=== PATIENT | female | born 2000 | race Two or more races ===

== ENCOUNTER 2024-12-24 12:21 | Emergency (ER) | payer OTHER, MEDICAID, SELFPAY ==
[2024-12-24 12:21] VITALS: BMI 39.1
[2024-12-24 12:25] VITALS: BP 153/85; PULSE 98; RESP 17; TEMP 36.8; O2SAT 97
[2024-12-24] MEDS: ONDANSETRON ODT 4 MG TABRAP PO (12:53)
[2024-12-24 13:01] LABS: Collection Type, Urine Voided
[2024-12-24 13:18] LABS: HCG Qualitative,Urine Positive
[2024-12-24 13:25] LABS: Bacteria,Urine Rare; Bilirubin,Urine Negative (Negative); Blood,Urine 2+ (Negative); Clarity,Urine Turbid (Clear/Hazy); Color,Urine Yellow (Lt Yel-Yel); Culture Indicated,Urine Not Indicated; Glucose, Urine Negative (Negative); Ketones,Urine 4+ (Negative); Leukocyte Esterase,Urine Negative (Negative); Nitrite,Urine Negative (Negative); PH,Urine 5.5 (5.0-7.0); Protein,Urine 1+ (Neg - Trace); RBC,Urine 6 /hpf (0-3); Specific Gravity,Urine 1.039 (1.001-1.035); Squamous Epithelial Cell,Urine 8 /hpf (0-5); WBC,Urine 3 /hpf (0-5)
--- NOTE | 2024-12-24 14:23 | EDNOTE_ITS ---
Nausea/Vomit./Diarrhea-RME/HPI General Chief complaint: Nausea/Vomiting/Diarrhea Stated complaint: VOMITING Time Seen by Provider: 12/24/24 12:31 Arrival date/time: 12/24/24 12:21 This is a 24-year-old female that comes in with complaints of nausea and vomiting not able to keep food down. Patient just found out she is . Patient has not seek care for yet as she just found out 2 days ago. Patient not having abdominal pain fever or chills. Patient denies any urinary symptoms. Related Data Previous Rx's ?Medication ?Instructions ?Recorded dicyclomine 20 mg tablet 20 mg PO TID PRN abdominal 0 09/23/22 discomfort #14 tabs ondansetron 4 mg disintegrating 4 mg PO Q8H PRN nausea and 09/23/22 tablet vomiting #14 tabs ondansetron 4 mg disintegrating 4 mg PO Q6H PRN nausea and 12/24/24 tablet vomiting #14 tabs Allergies Allergy/AdvReac Type Severity Reaction Status Date / Time No Known Allergies Allergy Verified 12/25/24 08:54 Review of Systems Review of Systems Systems Reviewed: All systems reviewed, normal except as documented Past Medical History Past Medical History CARDIAC: Negative Cardiac Disorders RESPIRATORY: Negative Asthma GENITOURINARY: Negative Renal Disease ENDOCRINE: Negative Diabetes Mellitus Type 2 HEMATOLOGIC: Negative Sickle Cell Disease Social History SMOKING STATUS: Never smoker SUBSTANCE USE: marijuana ED Exam Narrative Physical exam: VITAL SIGNS: Reviewed. GENERAL APPEARANCE: Alert and interactive, follows commands, no acute distress HEAD AND FACE: Non-traumatic. ENT: PERRL, conjuctiva pink and clear, eyelid no trauma, Mucous membrane moist. NECK: Supple, nontender, no nuchal rigidity. CHEST: No tenderness, no crepitus, no paradoxical movement, no retractions. LUNGS: Clear, well ventilated, symmetric, no rales, no wheezing, no rhonchi, no stridor, good breath sounds bilaterally. HEART: Regular rate, regular rhythm, no murmur, no gallops. ABDOMEN: Soft, nondistended, no guarding, nontender NEUROLOGICAL: Gross motor function intact sensory function intact, Appropriate for age. MUSCULOSKELETAL: low back nontender, full range of motion. EXTREMITIES: No redness no swelling no skin breakdown on bilateral foot and leg. Distal neurovascular status intact bilateral foot SKIN: Color pink, dry, no rash, no lacerations, no abrasions, no contusions. Course Quality Measures none Orders Category Date Time Status Bedside Influenza A&B Antigen Test NOW Care 12/24/24 12:44 Completed HCG Qualitative,Urine Stat Lab 12/24/24 12:54 Completed Urinalysis, C/S if Indicated Stat Lab 12/24/24 12:54 Completed Ondansetron Odt [Zofran Odt] Med 12/24/24 12:44 Discontinued 4 mg PO X1 ONE Vital Signs Vital signs: Vital Signs Temperature 98.2 F 12/24/24 12:25 Pulse Rate 98 12/24/24 12:25 Respiratory Rate 17 12/24/24 12:25 Blood Pressure 153/85 H 12/24/24 12:25 Pulse Oximetry (%) 97 12/24/24 12:25 Oxygen Delivery Method Room Air 12/24/24 12:25 Nausea/Vomiting/Diarrhea MDM Narrative MDM Narrative:: Patient's last menstrual period was last month earlier in the month. She does not recall last day. Patient not having vaginal bleeding abdominal pain. Patient no longer nauseous. Will send patient home with Zoan. Patient told to come back to the emergency room if symptoms change or worsen otherwise make an appoint with primary provider. Patient data External records reviewed:: [facility] previous records Clinical information provided by:: patient Social determinants that could affect healthcare access:: none Patient has the following chronic illnesses:: none How is presenting disease/condition affected by chronic disease/condition?: no c hronic disease Evaluation data The following diagnostics were reviewed and interpreted by me:: lab results Lab and/or radiology exams considered but not ordered:: none Interpretation Summary: see note Medications / Prescriptions Medications / Prescriptions considered but not ordered:: none Medication administrations:: Medication Administration History Discontinued Medications Ondansetron HCl (Ondansetron Odt 4 Mg Tabrap) 4 mg PO X1 ONE; Protocol Stop: 12/24/24 12:45 Last Admin: 12/24/24 12:53 Dose: 4 mg Documented By: AGUILAR see mar Consultations Consultation(s) initiated? (list below): No Diagnosis Nausea Differential Diagnosis: food poisoning, gastroenteritis, dehydration and other (nausea secondary to ) Most likely diagnosis given after review of the tests above:: viral illness and likely nausea secondary to Admission Indicated Admission indicated?: not indicated Admission Request Was there a request for admission?: No Disposition Plan Disposition Plan: Discharge Discharge Attestation Discharge Attestation: The patient and all family members were given an opportunity to ask questions and understood the discharge instructions. Discharge instructions specifically effects, indications for sooner follow up or return to the emergency department, and the expected course of current diagnosis. Patient condition: Stable Discharge Plan Plan Patient Disposition: HOME (Self Care) Patient condition on transfer: Stable Prescriptions/Referrals Prescriptions/Med Rec: New ondansetron 4 mg tablet,disintegrating 4 mg PO Q6H PRN (Reason: nausea and vomiting) Qty: 14 0RF No Action ondansetron 4 mg tablet,disintegrating 4 mg PO Q8H PRN (Reason: nausea and vomiting) Qty: 14 0RF dicyclomine 20 mg tablet 20 mg PO TID PRN (Reason: abdominal discomfort) Qty: 14 0RF Referrals: Ward Maddox MD [Primary Care Provider] - In 1 week Problem List Clinical Impression: Nausea & vomiting, Patient/Caregiver Discharge Instructions Education Materials: First Trimester, ED Vomiting (Adult) Additional Instructions: Follow up with primary provider in 1-2 days. Come back to ED if symptoms change or worsen Print Language: Indonesian Stand Alone Forms: Karen Award Info., Patient Portal Info Letter YASMIN/PAUL Supervising Physician YASMIN/PAUL Supervising Physician: fabien
[2024-12-24 14:30] VITALS: BP 132/70; PULSE 67; RESP 18; TEMP 36.6; O2SAT 99
== END 2024-12-24 14:31 | disposition home or self-care (01) ==
PROVIDERS: Nurse Practitioner Family; Emergency Provider Family Medicine; PCP Family Medicine
DX: O21.9 Vomiting of pregnancy, unspecified (principal); Z3A.00 Weeks of gestation of pregnancy not specified
CPT/HCPCS: 81001; 81025; 87400; 99283; Q0162

== ENCOUNTER 2024-12-25 08:51 | Emergency (ER) | payer OTHER, MEDICAID, SELFPAY ==
[2024-12-25 08:52] VITALS: BMI 39.1
[2024-12-25 09:14] VITALS: BP 127/82; PULSE 68; RESP 18; TEMP 36.9; O2SAT 99
--- NOTE | 2024-12-25 09:22 | XR_ITS ---
Examination: Complete OB ultrasound, less than 14 weeks, transabdominal Date and time of exam: December 25, 2024 10:19 AM INDICATIONS: Vaginal bleeding and pelvic cramping beginning today Technique: Obstetrical ultrasound images less than 14 weeks performed via transabdominal imaging Findings: A normal shaped single intrauterine gestation is present in the uterus. CRL 0.6 cm corresponds to 6 weeks 3 days gestational age Cardiac motion 112 BPM Subchorionic hemorrhage 22 x 8 x 17 mm Ultrasonographic survey of visible and placental structures unremarkable. Amniotic fluid volume appears appropriate for this estimated gestational age. Right ovary 2.9 cm arterial flow Left ovary 4.6 cm arterial flow IMPRESSION: Viable intrauterine gestation 6 weeks 3 days, recommend short-term follow-up pelvic sonography given the subchorionic hemorrhage Also recommend pelvic sonography to document stability of the prominent left ovary.
[2024-12-25 09:40] LABS: Basophils % (Auto) 0 % (0-2.5); Eosinophils # (Auto) 0.1 Thou/mm3 (0.0-0.5); Eosinophils % (Auto) 1 % (0-10); Hematocrit 38.2 % (36.0-46.0); Immature Granulocytes % (Auto) 0 % (0-0); Immature Granulocytes Auto 0.02 Thou/mm3 (0.00-0.00); Lymphocytes # (Auto) 1.4 Thou/mm3 (1.0-4.8); Lymphocytes % (Auto) 18 % (10-50); Mean Corpuscular Hemoglobin 27.8 pg (25.0-35.0); Mean Corpuscular Volume 82 fL (80-100); Monocytes # (Auto) 0.6 Thou/mm3 (0.0-0.8); Monocytes % (Auto) 8 % (0-12); Neutrophils # (Auto) 5.7 Thou/mm3 (1.8-7.7); Neutrophils % (Auto) 73 % (37-80); Nucleated Red Blood Cell % 0 /100 WBC (0); Platelet Count 344 Thou/mm3 (140-440); RDW Standard Deviation 40.5 fL (36.4-46.3); Red Blood Count 4.67 Miln/mm3 (4.00-5.20); White Blood Count 7.8 Thou/mm3 (3.6-11.0)
[2024-12-25 10:03] LABS: Alanine Aminotransferase 31 U/L (10-49); Albumin, Serum 4.9 gm/dL (3.5-5.0); Albumin/Globulin Ratio 2.1 (1.2-2.2); Alkaline Phosphatase 68 U/L (46-116); Anion Gap 11 (7-16); Aspartate Amino Transferase 15 U/L (0-34); BUN/Creatinine Ratio 10 Ratio (12-20); Bilirubin,Total 0.7 mg/dL (0.3-1.2); Blood Urea Nitrogen 6 mg/dL (9-23); Calcium 9.8 mg/dL (8.3-10.6); Calcium (Corrected) 9.8 mg/dL (8.5-10.1); Carbon Dioxide 26.4 mMol/L (20.0-31.0); Chloride 96 mMol/L (98-107); Creatinine (Component) 0.6 mg/dL (0.6-1.3); Estimated Creatinine Clearance 178.4 mL/min (>60); Globulin 2.3 gm/dL (2.3-3.5); Glucose 116 mg/dL (74-106); Osmolality,Calculated 264 (275-295); Potassium 3.1 mMol/L (3.4-5.1); Sodium 133 mMol/L (136-145); Total Protein 7.2 gm/dL (5.7-8.2); eGFR > 60 See Note
--- NOTE | 2024-12-25 11:50 | EDNOTE_ITS ---
ED OB Contraction Preg RMI/HPI General Chief complaint: OB/Uterine Contractions Stated complaint: SPOTTING/CRAMPING. Time Seen by Provider: 12/25/24 08:55 Arrival date/time: 12/25/24 08:51 24-year-old female approximately 6 weeks presents to the emergency department today for complaints of abdominal cramping and spotting. Patient reports was evaluated today for nausea and vomiting which has resolved but now has cramping Limitations: no limitations Related Data Previous Rx's ?Medication ?Instructions ?Recorded dicyclomine 20 mg tablet 20 mg PO TID PRN abdominal 0 09/23/22 discomfort #14 tabs ondansetron 4 mg disintegrating 4 mg PO Q8H PRN nausea and 09/23/22 tablet vomiting #14 tabs ondansetron 4 mg disintegrating 4 mg PO Q6H PRN nausea and 12/24/24 tablet vomiting #14 tabs Allergies Allergy/AdvReac Type Severity Reaction Status Date / Time No Known Allergies Allergy Verified 12/25/24 08:54 Review of Systems Review of Systems Systems Reviewed: All systems reviewed, normal except as documented Constitutional Constitutional: Reports system reviewed and no additional complaints, except as documented, Denies fever(s) and Denies headache(s) Eyes Eyes: Reports system reviewed and no additional complaints, except as documented and Denies blurry vision ENT Ears, Nose, Mouth, and Throat: Reports system reviewed and no additional complaints, except as documented, Denies headache(s), Denies nasal congestion and Denies nasal discharge Cardiovascular Cardiovascular: Reports system reviewed and no additional complaints, except as documented, Denies chest pain and Denies dyspnea Respiratory Respiratory: Reports system reviewed and no additional complaints, except as documented, Denies chest congestion, Denies cough and Denies dyspnea Gastrointestinal Gastrointestinal: Reports system reviewed and no additional complaints, except as documented and Denies abdominal pain Genitourinary Genitourinary: Reports system reviewed and no additional complaints, except as documented and Reports other (Cramping pelvic) Integumentary/Breasts Skin/Breast: Reports system reviewed and no additional complaints, except as documented and Denies rash Neurologic Neurologic: Reports system reviewed and no additional complaints, except as documented, Reports as per HPI and Denies headache(s) Past Medical History Past Medical History CARDIAC: Negative Cardiac Disorders RESPIRATORY: Negative Asthma GENITOURINARY: Negative Renal Disease ENDOCRINE: Negative Diabetes Mellitus Type 2 HEMATOLOGIC: Negative Sickle Cell Disease Social History SMOKING STATUS: Never smoker SUBSTANCE USE: marijuana ED Exam General Limitations: Present no limitations General appearance: Present alert and in no apparent distress Head Head exam: Present atraumatic Eye Eye exam: Present normal appearance, PERRL and EOMI ENT ENT exam: Present normal exam, normal oropharynx and mucous membranes moist Neck Neck exam: Present normal inspection, full ROM and trachea midline Chest Chest inspection: Present normal inspection and symmetric chest wall rise Respiratory Respiratory exam: Present normal lung sounds bilaterally Cardiovascular Cardiovascular exam: Present regular rate, normal rhythm and normal heart sounds Abdominal Exam Abdominal exam: Present soft and normal bowel sounds; Absent distention, tenderness, guarding, rebound or rigidity Extremities Exam Extremities exam: Present normal inspection and full ROM Back Exam Back exam: Present normal inspection and full ROM Neurological Exam Neurological exam: Present alert, oriented X3 and CN II-XII intact Psychiatric Psychiatric exam: Present normal affect and normal mood Skin Skin exam: Present warm, dry, intact and normal color Course Quality Measures none Orders Category Date Time Status US OB <= 14 weeks fetus Stat Exams 12/25/24 09:22 Completed ABO/RH Type Stat Lab 12/25/24 09:27 Completed Beta HCG,Quantitative Stat Lab 12/25/24 09:27 Completed CBC Stat Lab 12/25/24 09:27 Completed Comprehensive Metabolic Panel Stat Lab 12/25/24 09:27 Completed Potassium Chloride [K-Dur] Med 12/25/24 11:51 Discontinued 40 meq PO X1 ONE Vital Signs Vital signs: Vital Signs Temperature 98.5 F 12/25/24 09:14 Pulse Rate 68 12/25/24 09:14 Respiratory Rate 18 12/25/24 09:14 Blood Pressure 127/82 12/25/24 09:14 Pulse Oximetry (%) 99 12/25/24 09:14 Oxygen Delivery Method Room Air 12/25/24 09:14 O2 saturation 99% room air within normal limits OB/Uterine Contractions MDM Narrative MDM Narrative:: 24-year-old female approximately 6 weeks presents to the emergency department today for complaints of abdominal cramping and spotting. Patient reports was evaluated today for nausea and vomiting which has resolved but now has cramping On exam patient well-appearing patient does not appear toxic no acute distress patient has soft nontender abdomen Lab work and imaging obtained At this time patient appears to have viable Lab work shows a hypokalemia of 3.1 patient was given a dose of potassium here Patient discharged home in no distress to follow-up with primary care doctor in the next 24 to 48 hours and for any worsening symptoms to return to the ER immediately Patient data External records reviewed:: [facility] previous records Clinical information provided by:: patient Social determinants that could affect healthcare access:: none Patient has the following chronic illnesses:: None How is presenting disease/condition affected by chronic disease/condition?: no chronic disease Evaluation data The following diagnostics were reviewed and interpreted by me:: lab results and radiology exam(s) Lab and/or radiology exams considered but not ordered:: Labs radiology obtained Interpretation Summary: Reviewed by me Medications / Prescriptions Medications or Prescriptions considered but not ordered:: Given Medication administrations:: Medication Administration History Discontinued Medications Potassium Chloride (Potassium Chloride 20 Meq Tabcr) 40 meq PO X1 ONE Stop: 12/25/24 11:52 Last Admin: 12/25/24 12:36 Dose: 40 meq Documented By: CN Given Consultations Consultation(s) initiated? (list below): No Diagnosis OB Contractions Differential Diagnosis: other (Missed , threatened , nausea vomiting) Most likely diagnosis given after review of the tests above:: Threatened Admission Indicated Admission indicated?: not indicated Explain why admission is indicated or not indicated:: No criteria Admission Request Was there a request for admission?: No Disposition Plan Disposition Plan: Discharge Discharge Attestation Discharge Attestation: The patient and all family members were given an opportunity to ask questions and understood the discharge instructions. Discharge instructions specifically effects, indications for sooner follow up or return to the emergency department, and the expected course of current diagnosis. Patient condition: Stable Discharge Plan Plan Patient Disposition: HOME (Self Care) Discharge Disposition comment: Stable Prescriptions/Referrals Prescriptions/Med Rec: No Action ondansetron 4 mg tablet,disintegrating 4 mg PO Q8H PRN (Reason: nausea and vomiting) Qty: 14 0RF dicyclomine 20 mg tablet 20 mg PO TID PRN (Reason: abdominal discomfort) Qty: 14 0RF ondansetron 4 mg tablet,disintegrating 4 mg PO Q6H PRN (Reason: nausea and vomiting) Qty: 14 0RF Referrals: Ward Maddox MD [Primary Care Provider] - In 1 week Problem List Clinical Impression: Abdominal cramping affecting , Nausea & vomiting, Hypokalemia Patient/Caregiver Discharge Instructions Education Materials: Measuring Your Pain Additional Instructions: Please 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 conn
[2024-12-25] MEDS: POTASSIUM CHLORIDE 20 mEq TABCR 40 MEQ PO (12:36)
[2024-12-25 13:36] VITALS: PULSE 78; RESP 18; TEMP 36.6; O2SAT 100
== END 2024-12-25 13:41 | disposition home or self-care (01) ==
PROVIDERS: Nurse Practitioner Primary Care; Emergency Provider Family Medicine; PCP Family Medicine
DX: O99.891 Other specified diseases and conditions complicating pregnancy (principal); E87.6 Hypokalemia; O21.9 Vomiting of pregnancy, unspecified; R10.2 Pelvic and perineal pain; Z3A.01 Less than 8 weeks gestation of pregnancy
CPT/HCPCS: 36415; 76801; 80053; 81001; 84702; 85025; 86900; 86901; 99284; A9270

== ENCOUNTER 2025-01-30 14:13 | Outpatient (AMB) | payer OTHER, MEDICAID, SELFPAY ==
[2025-01-30 14:32] VITALS: BP 121/79; PULSE 84; RESP 17; TEMP 37.3; O2SAT 98; BMI 37.4
--- NOTE | 2025-01-30 14:32 | AMB.OBINITIA ---
Vital Signs 01/30/25 14:32 Height 1.65 m Height Method Stated Weight 102.115 kg Weight Measurement Method Standing Scale BMI 37.4 BP 121/79 Blood Pressure Source Automatic Cuff Blood Pressure Location Right Upper Arm Position Sitting Respiration 17 Pulse 84 Pulse Source Monitor Temp 99.1 F Temp Source Temporal Artery Scan Pulse Oximetry (%) 98 Oxygen Delivery Method Room Air Allergies/Home Meds Allergies & Medications Allergies No Known Allergies Allergy (Verified 01/30/25 14:33) Medication Reconciliation dicyclomine 20 mg tablet 20 mg PO TID PRN abdominal discomfort #14 tabs 09/23/22 [Rx Confirmed 01/30/25] ondansetron 4 mg disintegrating tablet 4 mg PO Q8H PRN nausea and vomiting #14 tabs 09/23/22 [Rx Confirmed 01/30/25] ondansetron 4 mg disintegrating tablet 4 mg PO Q6H PRN nausea and vomiting #14 tabs 12/24/24 [Rx Confirmed 01/30/25] ondansetron 4 mg disintegrating tablet 4 mg PO Q6H PRN nausea and vomiting #30 tabs 01/30/25 [Rx] Intake Visit Data Collection New Patient or Established: Established Patient (seen at [facility] within 3 years) Reason for Visit:: OBI Seen by Clinical Staff ONLY (RN/MA): No 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 1. Little interest or pleasure in doing things: not at all 2. Feeling down, depressed, or hopeless: not at all Total score: 0 PHQ-9 3. Trouble falling or staying asleep, or sleeping too much: Not at all 4. Feeling tired or having little energy: Not at all 5. Poor appetite or overeating: Not at all 6. Feeling bad about yourself - or that you are a failure or have let yourself or your family down: Not at all 7. Trouble concentrating on things, such as reading the newspaper or watching television: Not at all 8. Moving or speaking so slowly that other people could have noticed? - Or the opposite - being so fidgety or restless that you have been moving around a lot more than usual: not at all 9. Thoughts that you would be better off or of hurting yourself in some way: Not at all Total score: 0 If you checked off any problems, how difficult have these problems made it for you to do your work, take care of things at home, or get along with other people?: not difficult at all Source: Developed by Drs. Enoch Bridges, Janeen Fuchs, Klaus Figueroa and colleagues, with an educational quinton from [employer]. Depression screen completed yes Social History Living Situation History Marital Status: Life Partner Lives With: Family Housing: House Tobacco History Smoking Status: Never smoker Second Hand Smoke Exposure: No Alcohol History Alcohol Intake: Never Domestic Abuse History Do You Feel Safe at Home: Yes History of Present Illness HPI Narrative 24-year-old 1 para 0 for OBI. Patient has a LMP of November 09, 2024. This gives EDC August 16, 2024. Patient reports that she started menses at 14 years old. They are every month about 4 to 5 days. This was a planned . She has a history of prediabetes. Denies any surgeries. And she has a history of smoking weed but she stopped this and she found out she was . Denies any vaginal bleeding. Denies leaking. Denies contractions. 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 Last period November 2024. EDC August 16, 2024. Patient has sure dates. She had an ultrasound at [facility] ER on December 25, 2024. Patient was 6 weeks and 5 and this confirmed dates August 16, 2024. There hCGs were 40,000. Denies bleeding at this time increased nausea and vomiting. Phenergan is not helping. And denies bleeding and denies leaking and no cramping. Schedule maternal- medicine ultrasound. OB panel NIPT and carrier screen today. A1c today. Discussed diet and weight gain. Discussed SAB precautions. Comfort measures for nausea and vomiting continue with the Phenergan as needed and I will add Zofran 4 mg every 8 hours. Increase fluids. Return in 4 weeks OB check Menstrual History Menstrual reliability: definite Flow: normal Menstrual regularity: regular Monthly: Yes Age at menarche: 14 On control pills at conception: No OB History : 1 Infection History & Risk Evaluation History of STDs: none HIV risk evaluation: low risk Hepatitis B risk evaluation: low risk Patient or partner has history of Genital Herpes: No Varicella/chicken pox status: unknown Genetic Screening & History Genetic Screening/Teratology Counseling - Includes patient, baby's father, or anyone in either family with: 1. Patient's age 35 years or older as of estimated date of delivery: No 2. Thalassemia (Turkish, Montenegrin, Mediterranean, or Background); MCV less than 80: No 3. Neural Tube Defect (Meningomyelocele, Spina Bifida, or Anencephaly): No 4. Congenital Heart Defect: No 5. Down Syndrome: No 6. Ephraim-Sachs (Ashkenazi Lutheran, Cajun, Yoruba [place]): No 7. Bozena Disease (Ashkenazi Lutheran): No 8. Familial Dysautonomia (Ashkenazi Lutheran): No 9. Sickle Cell Disease or Trait (): No 10. Hemophilia or other blood disorders: No 11. Muscular Dystrophy: No 12. Cystic Fibrosis: No 13. [place]'s Chorea: No 14. Mental Retardation/Autism: No 15. Other inherited genetic or chromosomal disorder: No 16. Maternal Metabolic Disorder (EG,TYPE 1 Diabetes, PKU): No 17. Patient or baby's father had a child with defects not listed above: No 18. Recurrent loss or a stillbirth: No 19. Medications (including supplements, vitamins, herbs or otc drugs)/illicit/recreational drugs/alcohol since last menstrual period: No 20. Any other: No Infection History 1. Live with someone with TB or exposed to TB: No 2. Rash or viral illness since last menstrual period: No 3. Hepatitis B,C: No Other (see comments) Source: [employer] Review of Systems Review of Systems Systems Reviewed: All systems reviewed, normal except as documented Exam General Limitations: no limitations General Appearance: alert, in no apparent distress, comfortable, cooperative, healthy appearing, well developed and well groomed Head Head exam: atraumatic, normocephalic and normal inspection Resp Respiratory exam: Present normal lung sounds bilaterally Card Cardiovascular exam: Present regular rate, normal rhythm and normal heart sounds Abdominal Abdominal exam: Present soft and normal bowel sounds Psych Psychiatric exam: Present normal affect and normal mood Office Procedures OB Clinic LOC & Office Proc's Nursing/Assessment Patient Status: Established Patient OB Clinic Nursing Assessment: Medication Reconciliation, Update PMH in EMR and Vital Signs OB Clinic Coordination of Care: Complex Care and Chronic Disease 1-5, Consent,records obtained, informed consent, Education Simp Pt/Fam, Lab and Imaging orders and Staff clarify orders Special Needs: Heart tones Established Patient Charge Established Patient Point Assignment: 130 Established Patient Point Charge: EP Level 4 (120-155) Assessment & Plan Diagnosis / Problem List (1) Encounter for supervision of high risk in first trimester, antepartum: Status: Acute (2) Maternal obesity syndrome in first trimester: Status: Acute Plan Discussed diet and weight gain. Continue prenatals. Schedule maternal- medicine appointment for NT scan and anatomy scan. OB panel, NIPT, carrier screen, A1c today. Discussed SAB precautions return in 4 weeks OB check Additional Plan Follow Up: 4 Weeks (obc)
== END 2025-01-30 15:28 | disposition home or self-care (01) ==
LOC: HODSOBC 14:13
PROVIDERS: Supervising Provider Advanced Practice Midwife; Visit Provider Advanced Practice Midwife
DX: O09.891 Supervision of other high risk pregnancies, first trimester (principal); O99.211 Obesity complicating pregnancy, first trimester; Z3A.11 11 weeks gestation of pregnancy
CPT/HCPCS: 99214; G0463

== ENCOUNTER 2025-02-27 08:13 | Outpatient (AMB) | payer OTHER, MEDICAID, SELFPAY ==
[2025-02-27 08:23] VITALS: BP 115/76; PULSE 69; RESP 16; TEMP 37.2; O2SAT 98; BMI 38.1
--- NOTE | 2025-02-27 08:23 | AMB.OBVISIT ---
Vital Signs 02/27/25 08:23 Height 1.65 m Height Method Stated Weight 103.873 kg Weight Measurement Method Standing Scale BMI 38.1 BP 115/76 Blood Pressure Source Automatic Cuff Blood Pressure Location Left Upper Arm Position Sitting Respiration 16 Pulse 69 Pulse Source Monitor Temp 98.9 F Temp Source Oral Pulse Oximetry (%) 98 Oxygen Delivery Method Room Air Allergies/Home Meds Allergies & Medications Allergies No Known Allergies Allergy (Verified 02/27/25 08:24) Medication Reconciliation dicyclomine 20 mg tablet 20 mg PO TID PRN abdominal discomfort #14 tabs 09/23/22 [Rx Confirmed 02/27/25] ondansetron 4 mg disintegrating tablet 4 mg PO Q8H PRN nausea and vomiting #14 tabs 09/23/22 [Rx Confirmed 02/27/25] ondansetron 4 mg disintegrating tablet 4 mg PO Q6H PRN nausea and vomiting #14 tabs 12/24/24 [Rx Confirmed 02/27/25] ondansetron 4 mg disintegrating tablet 4 mg PO Q6H PRN nausea and vomiting #30 tabs 01/30/25 [Rx Confirmed 02/27/25] Intake Visit Data Collection New Patient or Established: Established Patient (seen at [facility] within 3 years) Reason for Visit:: CARE Seen by Clinical Staff ONLY (RN/MA): No Transaction Advisory Services Manager Required: No Do You Feel Safe at Home: Yes Authorities Contacted: N/A PCP or OBGYN visit in last 3 months: Yes Hx Now: Yes Are you currently on any form of Control: No Pain Present Currently: No Pain Scale Used: Diallo-Rivera/Numerical Pain scale:: 0 Smoking Status Smoking Status: Never smoker Questionnaires Covid-19 Vaccine Questionnaire Has patient been vacinated for Covid-19 Have you been vacinated for Covid-19: Yes PHQ-9 PHQ-2 Over the last 2 weeks, how often have you been bothered by any of the following problems? 1. Little interest or pleasure in doing things: not at all 2. Feeling down, depressed, or hopeless: not at all Total score: 0 PHQ-9 3. Trouble falling or staying asleep, or sleeping too much: Not at all 4. Feeling tired or having little energy: Not at all 5. Poor appetite or overeating: Not at all 6. Feeling bad about yourself - or that you are a failure or have let yourself or your family down: Not at all 7. Trouble concentrating on things, such as reading the newspaper or watching television: Not at all 8. Moving or speaking so slowly that other people could have noticed? - Or the opposite - being so fidgety or restless that you have been moving around a lot more than usual: not at all 9. Thoughts that you would be better off or of hurting yourself in some way: Not at all Total score: 0 Source: Developed by Drs. Enoch Bridges, Janeen Fuchs, Klaus Figueroa and colleagues, with an educational quinton from [employer]. 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 Last period November 2024. EDC August 16, 2024. Patient has sure dates. She had an ultrasound at [facility] ER on December 25, 2024. Patient was 6 weeks and 5 and this confirmed dates August 16, 2024. There hCGs were 40,000. Denies bleeding at this time increased nausea and vomiting. Phenergan is not helping. And denies bleeding and denies leaking and no cramping. Schedule maternal- medicine ultrasound. OB panel NIPT and carrier screen today. A1c today. Discussed diet and weight gain. Discussed SAB precautions. Comfort measures for nausea and vomiting continue with the Phenergan as needed and I will add Zofran 4 mg every 8 hours. Increase fluids. Return in 4 weeks OB check 02/27/25 <del>?</del> 15w 5d 103.873 kg 115/76 absent unknown 15 145 absent No OB complaints. Denies leaking, denies bleeding, denies contractions. aFP today. Discussed weight gain. Discussed SAB precautions. Increase fluids. Keep MFM anatomy scan for March 30 return in 4 weeks OB check GONZALO Calculator Estimated Delivery Date Method Current WG Current Estimate 08/16/25 LMP (Certain) 15w 5d Other Estimates 08/17/25 Ultrasound #1 15w 4d Notes Visit Date: 02/27/25 Last Updated by: Lyn White CNM OB PANEL: o+,ABS-, RPR;;NR, RUB IMM, HBSAG-, HIV-, HC-, gc/ct-, a1: 5.7, nipt-/GIRL, CARRIER SCREEN- Visit Date: 01/30/25 Last Updated by: Lyn White CNM 24 yo . lmp 11/09/24. EDC: 08/16/24. 1st sono: 12/25/24. IUP:6w3. EDC: 08/16/25. Office Procedures OB Clinic LOC & Office Proc's Nursing/Assessment Patient Status: Established Patient OB Clinic Nursing Assessment: Medication Reconciliation, Update PMH in EMR and Vital Signs OB Clinic Coordination of Care: Complex Care and Chronic Disease 1-5, Consent,records obtained, informed consent, Education Simp Pt/Fam, 1 Ins Authorization, Lab and Imaging orders, Results/Orders obtained and Staff clarify orders Special Needs: Heart tones Established Patient Charge Established Patient Point Assignment: 150 Established Patient Point Charge: EP Level 4 (120-155) Assessment & Plan Diagnosis / Problem List (1) Encounter for supervision of high risk in second trimester, antepartum: Status: Acute (2) Obesity affecting in second trimester: Status: Acute Qualifiers: Obesity type affecting : severe obesity due to excess calories Qualified Code(s): O99.212 - Obesity complicating , second trimester; E66.01 - Morbid (severe) obesity due to excess calories Plan aFP today. Keep appointment for March 30 with MFM for anatomy scan. Discussed SAB precautions. Increase fluids. Discussed weight and diet. increase activity. return in 4 weeks Additional Plan Follow Up: 4 Weeks (obc)
== END 2025-02-27 09:28 | disposition home or self-care (01) ==
LOC: HODSOBC 08:13
PROVIDERS: Supervising Provider Advanced Practice Midwife; Visit Provider Advanced Practice Midwife
DX: O09.892 Supervision of other high risk pregnancies, second trimester (principal); O99.212 Obesity complicating pregnancy, second trimester; Z3A.15 15 weeks gestation of pregnancy
CPT/HCPCS: 99214; G0463

== ENCOUNTER 2025-03-27 08:17 | Outpatient (AMB) | payer OTHER, MEDICAID, SELFPAY ==
[2025-03-27 08:41] VITALS: BP 135/79; PULSE 96; RESP 18; TEMP 36.9; O2SAT 98; BMI 39.2
--- NOTE | 2025-03-27 08:41 | OBCLNT_ITS ---
Vital Signs 03/27/25 08:41 Height 1.65 m Height Method Measured Weight 106.821 kg Weight Measurement Method Standing Scale BMI 39.2 BP 135/79 H Blood Pressure Source Automatic Cuff Blood Pressure Location Right Upper Arm Position Sitting Respiration 18 Pulse 96 Pulse Source Monitor Temp 98.4 F Temp Source Temporal Artery Scan Pulse Oximetry (%) 98 Oxygen Delivery Method Room Air Allergies/Home Meds Allergies & Medications Allergies No Known Allergies Allergy (Verified 02/27/25 08:24) Intake Visit Data Collection New Patient or Established: Established Patient (seen at [facility] within 3 years) Reason for Visit:: OBC FOLLOW UP Clearance Rep Required: No Do You Feel Safe at Home: Yes Authorities Contacted: N/A PCP or OBGYN visit in last 3 months: Yes Date of Last PCP or OBGYN visit: 02/27/25 Hx Now: Yes Are you currently on any form of Control: No Pain Present Currently: No Smoking Status Smoking Status: Never smoker Questionnaires PHQ-9 PHQ-2 Over the last 2 weeks, how often have you been bothered by any of the following problems? 1. Little interest or pleasure in doing things: not at all PHQ-9 8. Moving or speaking so slowly that other people could have noticed? - Or the opposite - being so fidgety or restless that you have been moving around a lot more than usual: not at all Source: Developed by Drs. Enoch Bridges, Janeen Fuchs, Klaus Figueroa and colleagues, with an educational quinton from [employer]. 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 Last period November 2024. EDC August 16, 2024. Patient has sure dates. She had an ultrasound at [facility] ER on December 25, 2024. Patient was 6 weeks and 5 and this confirmed dates August 16, 2024. There hCGs were 40,000. Denies bleeding at this time increased nausea and vomiting. Phenergan is not helping. And denies bleeding and denies leaking and no cramping. Schedule materna l- medicine ultrasound. OB panel NIPT and carrier screen today. A1c today. Discussed diet and weight gain. Discussed SAB precautions. Comfort measures for nausea and vomiting continue with the Phenergan as needed and I will add Zofran 4 mg every 8 hours. Increase fluids. Return in 4 weeks OB check 02/27/25 -?-?-?-?-?-?-?-?-?-?-?-?- 15w 5d 103.873 kg 115/76 absent unknown 15 145 absent No OB complaints. Denies leaking, denies bleeding, denies contractions. aFP today. Discussed weight gain. Discussed SAB precautions. Increase fluids. Keep MFM anatomy scan for March 30 return in 4 weeks OB check 03/27/25 -?-?-?-?-?-?-?-?-?-?-?-?- 19w 5d 106.821 kg 135/79 absent unknown 19 145 absent No OB complaints. Genetics appointment was completed. Patient is follow-up for MFM. Denies leaking, bleeding, contractions. Light movement noted Follow-up sono with MFM scheduled for April 02, 2025. Discussed labor precautions. Increase fluids. Return in 4 weeks OB check GONZALO Calculator Estimated Delivery Date Method Current WG Current Estimate 08/16/25 LMP (Certain) 19w 5d Other Estimates 08/17/25 Ultrasound #1 19w 4d Notes Visit Date: 03/27/25 Last Updated by: Lyn White CNM 03/26: AFP+/genetic and mfm scheduled. Update AFP info and NIPT info, pat ient and partner were given slaiva kits for carrier screen, amno declined Visit Date: 02/27/25 Last Updated by: Lyn White CNM OB PANEL: o+,ABS-, RPR;;NR, RUB IMM, HBSAG-, HIV-, HC-, gc/ct-, a1: 5.7, nipt-/GIRL, CARRIER SCREEN- Visit Date: 01/30/25 Last Updated by: Lyn White CNM 24 yo . lmp 11/09/24. EDC: 08/16/24. 1st sono: 12/25/24. IUP:6w3. EDC: 08/16/25. Office Procedures OB Clinic LOC & Office Proc's Nursing/Assessment Patient Status: Established Patient OB Clinic Nursing Assessment: Medication Reconciliation, Update PMH in EMR and Vital Signs OB Clinic Coordination of Care: Complex Care and Chronic Disease 1-5, Education Complex Pt/Fam, Consent,records obtained, informed consent, Lab and Imaging orders and Results/Orders obtained Special Needs: Heart tones Established Patient Charge Established Patient Point Assignment: 130 Established Patient Point Charge: EP Level 3 (80-115) Assessment & Plan Diagnosis / Problem List (1) Obesity affecting in second trimester: Status: Acute Qualifiers: Obesity type affecting : severe obesity due to excess calories Qualified Code(s): O99.212 - Obesity complicating , second trimester; E66.01 - Morbid (severe) obesity due to excess calories (2) Encounter for supervision of high risk in second trimester, antepartum: Status: Acute Plan Follow-up with [facility] April 02, 2025 for follow-up scan. Patient and partner are completing saliva kits for carrier screens from the genetic counselor. Patient declined amniocentesis. Discussed precautions. Increase fluids. Continue prenatals. Return in 4 weeks OB check Additional Plan Follow Up: 4 Weeks (OBC)
== END 2025-03-27 09:46 | disposition home or self-care (01) ==
LOC: HODSOBC 08:17
PROVIDERS: Supervising Provider Advanced Practice Midwife; Visit Provider Advanced Practice Midwife
DX: O09.892 Supervision of other high risk pregnancies, second trimester (principal); O99.212 Obesity complicating pregnancy, second trimester; Z3A.19 19 weeks gestation of pregnancy
CPT/HCPCS: 99213; G0463

== ENCOUNTER 2025-04-25 10:12 | Outpatient (AMB) | payer OTHER, MEDICAID, SELFPAY ==
[2025-04-25 10:44] VITALS: BP 112/74; PULSE 89; RESP 16; TEMP 36.6; O2SAT 98; BMI 40.8
--- NOTE | 2025-04-25 10:44 | OBCLNT_ITS ---
Vital Signs 04/25/25 10:44 Height 1.65 m Height Method Stated Weight 111.244 kg Weight Measurement Method Standing Scale BMI 40.8 BP 112/74 Blood Pressure Source Automatic Cuff Blood Pressure Location Left Upper Arm Position Sitting Respiration 16 Pulse 89 Pulse Source Monitor Temp 97.8 F Temp Source Oral Pulse Oximetry (%) 98 Oxygen Delivery Method Room Air Allergies/Home Meds Allergies & Medications Allergies No Known Allergies Allergy (Verified 04/25/25 10:45) Medication Reconciliation dicyclomine 20 mg tablet 20 mg PO TID PRN abdominal discomfort #14 tabs 09/23/22 [Rx Confirmed 04/25/25] ondansetron 4 mg disintegrating tablet 4 mg PO Q8H PRN nausea and vomiting #14 tabs 09/23/22 [Rx Confirmed 04/25/25] ondansetron 4 mg disintegrating tablet 4 mg PO Q6H PRN nausea and vomiting #14 tabs 12/24/24 [Rx Confirmed 04/25/25] ondansetron 4 mg disintegrating tablet 4 mg PO Q6H PRN nausea and vomiting #30 tabs 01/30/25 [Rx Confirmed 04/25/25] aspirin 81 mg tablet,delayed release (Adult Aspirin Regimen) 81 mg PO QDAY #30 tabs 04/25/25 [Rx] vitamin-ferrous fumarate 28 mg iron-folic acid 800 mcg tablet ( Vitamins with Minerals) 1 tab PO QDAY #60 tabs 04/25/25 [Rx] Intake Visit Data Collection New Patient or Established: Established Patient (seen at [facility] within 3 years) Reason for Visit:: CARE Seen by Clinical Staff ONLY (RN/MA): No Drug Room Clerk Required: No Do You Feel Safe at Home: Yes Authorities Contacted: N/A PCP or OBGYN visit in last 3 months: Yes Hx Now: Yes Are you currently on any form of Control: No Pain Present Currently: No Pain Scale Used: Diallo-Rivera/Numerical Pain scale:: 0 Smoking Status Smoking Status: Never smoker Immunizations Flu Vaccine in the Last 12 Months: No Flu Vaccine Exclusion Criteria: No Exclusion Criteria Questionnaires Covid-19 Vaccine Questionnaire Has patient been vacinated for Covid-19 Have you been vacinated for Covid-19: No PHQ-9 PHQ-2 Over the last 2 weeks, how often have you been bothered by any of the following problems? 1. Little interest or pleasure in doing things: not at all 2. Feeling down, depressed, or hopeless: not at all Total score: 0 PHQ-9 3. Trouble falling or staying asleep, or sleeping too much: Not at all 4. Feeling tired or having little energy: Not at all 5. Poor appetite or overeating: Not at all 6. Feeling bad about yourself - or that you are a failure or have let yourself or your family down: Not at all 7. Trouble concentrating on things, such as reading the newspaper or watching television: Not at all 8. Moving or speaking so slowly that other people could have noticed? - Or the opposite - being so fidgety or restless that you have been moving around a lot m ore than usual: not at all 9. Thoughts that you would be better off or of hurting yourself in some way: Not at all Total score: 0 Source: Developed by Drs. Enoch Bridges, Janeen Fuchs, Klaus Figueroa and colleagues, with an educational quinton from [employer]. 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 Last period November 2024. EDC August 16, 2024. Patient has sure dates. She had an ultrasound at [facility] ER on December 25, 2024. Patient was 6 weeks and 5 and this confirmed dates August 16, 2024. There hCGs were 40,000. Denies bleeding at this time increased nausea and vomiting. Phenergan is not helping. And denies bleeding and denies leaking and no cramping. Schedule materna l- medicine ultrasound. OB panel NIPT and carrier screen today. A1c today. Discussed diet and weight gain. Discussed SAB precautions. Comfort measures for nausea and vomiting continue with the Phenergan as needed and I will add Zofran 4 mg every 8 hours. Increase fluids. Return in 4 weeks OB check 02/27/25 -?-?-?-?-?-?-?-?-?-?-?-?- 15w 5d 103.873 kg 115/76 absent unknown 15 145 absent No OB complaints. Denies leaking, denies bleeding, denies contractions. aFP today. Discussed weig ht gain. Discussed SAB precautions. Increase fluids. Keep MFM anatomy scan for March 30 return in 4 weeks OB check 03/27/25 -?-?-?-?-?-?-?-?-?-?-?-?- 19w 5d 106.821 kg 135/79 absent unknown 19 145 absent No OB complaints. Genetics appointment was completed. Patient is follow-up for MFM. Denies leaking, bleeding, contractions. Light movement noted Follow-up sono with MFM scheduled for April 02, 2025. Discussed labor precautions. Increase fluids. Return in 4 weeks OB check 04/25/25 -?-?-?-?-?--?-?-?-?-?-?-?- 23w 6d 111.244 kg 112/74 absent unknown 23 140 active Doing well. No OB complaints. Reports good movement. Denies leaking, bleeding or cramps. Nausea and vomiting improved Fol low-up MFM appointment May 17. Discussed labor precautions. Ordered third trimester labs to be done at OB. Return in 4 weeks OB check GONZALO Calculator Estimated Delivery Date Method Current WG Current Estimate 08/16/25 LMP (Certain) 23w 6d Other Estimates 08/17/25 Ultrasound #1 23w 5d 08/16/25 Ultrasound #2 23w 6d 08/17/25 Manual 23w 5d final gonzalo: 08/17, efw: 86% Notes Visit Date: 04/25/25 Last Updated by: Lyn White CNM 04/25: marginal cord insert, efw: 86% Visit Date: 03/27/25 Last Updated by: Lyn White CNM 03/26: AFP+/genetic and mfm scheduled. Update AFP info and NIPT info, patient and partner were given slaiva kits for carrier screen, amno declined Visit Date: 02/27/25 Last Updated by: Lyn White CNM OB PANEL: o+,ABS-, RPR;;NR, RUB IMM, HBSAG-, HIV-, HC-, gc/ct-, a1: 5.7, nipt-/GIRL, CARRIER SCREEN- Visit Date: 01/30/25 Last Updated by: Lyn White CNM 24 yo . lmp 11/09/24. EDC: 08/16/24. 1st sono: 12/25/24. IUP:6w3. EDC: 08/16/25. Office Procedures OBC Clinic LOC & Office Proc's Nursing/Assessment Patient Status: Established Patient OB Clinic Nursing Assessment: Medication Reconciliation, Update PMH in EMR and Vital Signs OB Clinic Coordination of Care: Complex Care and Chronic Disease 1-5, Consent,records obtained, informed consent, Education Simp Pt/Fam, Lab and Imaging orders, Results/Orders obtained and Staff clarify orders Special Needs: Heart tones Established Patient Charge Established Patient Point Assignment: 135 Established Patient Point Charge: EP Level 4 (120-155) Assessment & Plan Diagnosis / Problem List (1) Obesity affecting in second trimester: Status: Acute Qualifiers: Obesity type affecting : severe obesity due to excess calories Qualified Code(s): O99.212 - Obesity complicating , second trimester; E66.01 - Morbid (severe) obesity due to excess calories Plan OB panel at outpatient department. Discussed labor precautions. Increase fluids. Discussed diet and weight gain. Return in 4 weeks OB check start low-dose baby aspirin. refill PNV Additional Plan Follow Up: 4 Weeks (obc)
== END 2025-04-25 11:30 | disposition home or self-care (01) ==
LOC: HODSOBC 10:12
PROVIDERS: Supervising Provider Advanced Practice Midwife; Visit Provider Advanced Practice Midwife
DX: O09.892 Supervision of other high risk pregnancies, second trimester (principal); O99.212 Obesity complicating pregnancy, second trimester; Z3A.23 23 weeks gestation of pregnancy
CPT/HCPCS: 99214; G0463

== ENCOUNTER → 2025-05-01 | Outpatient (CLI) | payer OTHER, MEDICAID, SELFPAY ==
[2025-05-01 11:16] LABS: Basophils # (Auto) 0.0 Thou/mm3 (0.0-0.2); Basophils % (Auto) 0 % (0-2.5); Eosinophils # (Auto) 0.2 Thou/mm3 (0.0-0.5); Eosinophils % (Auto) 2 % (0-10); Hematocrit 34.6 % (36.0-46.0); Hemoglobin 11.2 g/dL (12.0-16.0); Immature Granulocytes Auto 0.06 Thou/mm3 (0.00-0.00); Lymphocytes # (Auto) 1.5 Thou/mm3 (1.0-4.8); Lymphocytes % (Auto) 15 % (10-50); Mean Corpuscular HGB Conc 32.4 g/dl (31.0-37.0); Mean Corpuscular Hemoglobin 26.9 pg (25.0-35.0); Mean Corpuscular Volume 83 fL (80-100); Monocytes # (Auto) 0.4 Thou/mm3 (0.0-0.8); Monocytes % (Auto) 4 % (0-12); Neutrophils # (Auto) 7.8 Thou/mm3 (1.8-7.7); Neutrophils % (Auto) 78 % (37-80); Nucleated Red Blood Cell # 0.00 Thou/mm3 (0.00-0.00); Nucleated Red Blood Cell % 0 /100 WBC (0); Platelet Count 301 Thou/mm3 (140-440); RDW Standard Deviation 42.1 fL (36.4-46.3); Red Blood Count 4.16 Miln/mm3 (4.00-5.20); White Blood Count 10.0 Thou/mm3 (3.6-11.0)
[2025-05-01 11:25] LABS: Glucose,1 Hour PP 50gm Dose 233 mg/dL (80-140)
[2025-05-01 11:30] LABS: Glucose Estimated Average 120 mg/dL (80-131); Hemoglobin A1C 5.8 % Hgb (4.8-6.0)
[2025-05-01 11:58] LABS: Syphilis Nonreactive (Nonreactive)
== END | disposition home or self-care (01) ==
LOC: COPL 09:17
PROVIDERS: Referring Provider Advanced Practice Midwife; Visit Provider Advanced Practice Midwife
DX: O99.212 Obesity complicating pregnancy, second trimester (principal); E66.01 Morbid (severe) obesity due to excess calories; O09.92 Supervision of high risk pregnancy, unspecified, second trimester
CPT/HCPCS: 36415; 82950; 83036; 85025; 86780

== ENCOUNTER 2025-05-23 08:11 | Outpatient (AMB) | payer OTHER, MEDICAID, SELFPAY ==
[2025-05-23 08:29] VITALS: BP 114/78; PULSE 109; RESP 18; TEMP 36.2; O2SAT 98; BMI 42.0
--- NOTE | 2025-05-23 08:29 | AMB.OBPNC ---
Vital Signs 05/23/25 08:29 Height 1.65 m Height Method Stated Weight 114.475 kg Weight Measurement Method Standing Scale BMI 42.0 BP 114/78 Blood Pressure Source Automatic Cuff Blood Pressure Location Left Upper Arm Position Sitting Respiration 18 Pulse 109 H Pulse Source Monitor Temp 97.2 F Temp Source Oral Pulse Oximetry (%) 98 Oxygen Delivery Method Room Air Allergies/Home Meds Allergies & Medications Allergies No Known Allergies Allergy (Verified 05/23/25 08:29) Medication Reconciliation dicyclomine 20 mg tablet 20 mg PO TID PRN abdominal discomfort #14 tabs 09/23/22 [Rx Confirmed 05/23/25] ondansetron 4 mg disintegrating tablet 4 mg PO Q8H PRN nausea and vomiting #14 tabs 09/23/22 [Rx Confirmed 05/23/25] ondansetron 4 mg disintegrating tablet 4 mg PO Q6H PRN nausea and vomiting #14 tabs 12/24/24 [Rx Confirmed 05/23/25] ondansetron 4 mg disintegrating tablet 4 mg PO Q6H PRN nausea and vomiting #30 tabs 01/30/25 [Rx Confirmed 05/23/25] aspirin 81 mg tablet,delayed release (Adult Aspirin Regimen) 81 mg PO QDAY #30 tabs 04/25/25 [Rx Confirmed 05/23/25] vitamin-ferrous fumarate 28 mg iron-folic acid 800 mcg tablet ( Vitamins with Minerals) 1 tab PO QDAY #60 tabs 04/25/25 [Rx Confirmed 05/23/25] blood sugar diagnostic (Blood Glucose Test strips) #50 ea 05/23/25 [Rx] blood-glucose meter #1 ea 05/23/25 [Rx] lancets #100 ea 05/23/25 [Rx] Immunizations Immunizations Flu Vaccine in the Last 12 Months: No Flu Vaccine Exclusion Criteria: No Exclusion Criteria Care OB Visit Log OB Flowsheet Initial Weight: Not Recorded Date <del>?</del> EGA Weight BP Alb Glu CTX Pres Fundal ht FHR Mov Dilation Station Effacement Hx Notes Visit Note 01/30/25 <del>?</del> 11w 5d 102.115 kg 121/79 absent unknown 11 156 absent 24-year-old 1 para 0 for OBI. Last period November 2024. EDC August 16, 2024. Patient has sure dates. She had an ultrasound at [facility] ER on December 25, 2024. Patient was 6 weeks and 5 and this confirmed dates August 16, 2024. There hCGs were 40,000. Denies bleeding at this time increased nausea and vomiting. Phenergan is not helping. And denies bleeding and denies leaking and no cramping. Schedule maternal- medicine ultrasound. OB panel NIPT and carrier screen today. A1c today. Discussed diet and weight gain. Discussed SAB precautions. Comfort measures for nausea and vomiting continue with the Phenergan as needed and I will add Zofran 4 mg every 8 hours. Increase fluids. Return in 4 weeks OB check 02/27/25 <del>?</del> 15w 5d 103.873 kg 115/76 absent unknown 15 145 absent No OB complaints. Denies leaking, denies bleeding, denies contractions. aFP today. Discussed weight gain. Discussed SAB precautions. Increase fluids. Keep MFM anatomy scan for March 30 return in 4 weeks OB check 03/27/25 <del>?</del> 19w 5d 106.821 kg 135/79 absent unknown 19 145 absent No OB complaints. Genetics appointment was completed. Patient is follow-up for MFM. Denies leaking, bleeding, contractions. Light movement noted Follow-up sono with MFM scheduled for April 02, 2025. Discussed labor precautions. Increase fluids. Return in 4 weeks OB check 04/25/25 <del>?</del> 23w 6d 111.244 kg 112/74 absent unknown 23 140 active Doing well. No OB complaints. Reports good movement. Denies leaking, bleeding or cramps. Nausea and vomiting improved Follow-up MFM appointment May 17. Discussed labor precautions. Ordered third trimester labs to be done at OB. Return in 4 weeks OB check 05/23/25 <del>?</del> 27w 6d 114.475 kg 114/78 absent unknown 28 140 active Doing well. Reports good movement. Denies labor precautions. Fetus is active. Patient has forms with her that need to be filled out approving 12 weeks off after delivery Follow-up [facility] July 03. Ordered lancets, glucometer, test trips. I discussed and went over GDM diet and testing. Walk for 40 minutes a day and 10 minutes after each meal. Discussed labor precautions. And advised patient to increase her low-dose baby aspirin to 2 tablets a day and return in 3 weeks OB. disability x 12 week GONZALO Calculator Estimated Delivery Date Method Current WG Current Estimate 08/16/25 LMP (Certain) 27w 6d Other Estimates 08/17/25 Ultrasound #1 27w 5d 08/16/25 Ultrasound #2 27w 6d 08/17/25 Manual 27w 5d final gonzalo: 08/17/25, efw: 86% Notes Visit Date: 05/23/25 Last Updated by: Lyn White CNM 1 hr gtt: 223. RPR-, A1c: 5.8, sono 05/16/25: IUP 26w6, EFW>99% Visit Date: 04/25/25 Last Updated by: Lyn White CNM 04/25: marginal cord insert, efw: 86% Visit Date: 03/27/25 Last Updated by: Lyn White CNM 03/26: AFP+/genetic and mfm scheduled. Update AFP info and NIPT info, patient and partner were given slaiva kits for carrier screen, amno declined Visit Date: 02/27/25 Last Updated by: Lyn White CNM OB PANEL: o+,ABS-, RPR;;NR, RUB IMM, HBSAG-, HIV-, HC-, gc/ct-, a1: 5.7, nipt-/GIRL, CARRIER SCREEN- Visit Date: 01/30/25 Last Updated by: Lyn White CNM 24 yo . lmp 11/09/24. EDC: 08/16/24. 1st sono: 12/25/24. IUP:6w3. EDC: 08/16/25. Office Procedures OBC Clinic LOC & Office Proc's Nursing/Assessment Patient Status: Established Patient OB Clinic Nursing Assessment: Medication Reconciliation, Update PMH in EMR and Vital Signs OB Clinic Coordination of Care: Consent,records obtained, informed consent, Education Simp Pt/Fam, Lab and Imaging orders, Results/Orders obtained and Staff clarify orders Special Needs: Heart tones Established Patient Charge Established Patient Point Assignment: 110 Established Patient Point Charge: EP Level 3 (80-115) Assessment & Plan Diagnosis / Problem List (1) Obesity affecting in second trimester: Status: Acute Qualifiers: Obesity type affecting : severe obesity due to excess calories Qualified Code(s): O99.212 - Obesity complicating , second trimester; E66.01 - Morbid (severe) obesity due to excess calories (2) Diet controlled gestational diabetes mellitus (GDM) in second trimester: Status: Acute Plan Follow-up M for July 03. Her last ultrasound showed baby growing in the 99th percentile. Discussed 1 hour GTT was 233. I ordered glucometer, lancets and test strips. I reviewed testing 4 times a day. I reviewed reviewed parameters. Will start antepartum testing at 32 weeks. Induced at 39. And I signed patient's form for her employer to have 12 weeks care patient will follow-up with [facility] for diabetic teaching. Additional Plan Follow Up: 4 Weeks (obc)
== END 2025-05-23 09:26 | disposition home or self-care (01) ==
LOC: HODSOBC 08:11
PROVIDERS: Supervising Provider Advanced Practice Midwife; Visit Provider Advanced Practice Midwife
DX: O09.892 Supervision of other high risk pregnancies, second trimester (principal); O24.410 Gestational diabetes mellitus in pregnancy, diet controlled; O99.212 Obesity complicating pregnancy, second trimester; Z3A.27 27 weeks gestation of pregnancy
CPT/HCPCS: 99213; G0463

== ENCOUNTER 2025-06-13 08:25 | Outpatient (AMB) | payer OTHER, MEDICAID, SELFPAY ==
[2025-06-13 08:39] VITALS: BP 116/75; PULSE 91; RESP 18; TEMP 36.6; O2SAT 98; BMI 41.8
--- NOTE | 2025-06-13 08:39 | OBCLNT_ITS ---
Vital Signs 06/13/25 08:39 Height 1.65 m Height Method Stated Weight 113.852 kg Weight Measurement Method Standing Scale BMI 41.8 BP 116/75 Blood Pressure Source Automatic Cuff Blood Pressure Location Left Upper Arm Position Sitting Respiration 18 Pulse 91 Pulse Source Monitor Temp 97.9 F Temp Source Oral Pulse Oximetry (%) 98 Oxygen Delivery Method Room Air Allergies/Home Meds Allergies & Medications Allergies No Known Allergies Allergy (Verified 06/13/25 08:40) Medication Reconciliation dicyclomine 20 mg tablet 20 mg PO TID PRN abdominal discomfort #14 tabs 09/23/22 [Rx Confirmed 06/13/25] ondansetron 4 mg disintegrating tablet 4 mg PO Q8H PRN nausea and vomiting #14 tabs 09/23/22 [Rx Confirmed 06/13/25] ondansetron 4 mg disintegrating tablet 4 mg PO Q6H PRN nausea and vomiting #14 tabs 12/24/24 [Rx Confirmed 06/13/25] ondansetron 4 mg disintegrating tablet 4 mg PO Q6H PRN nausea and vomiting #30 tabs 01/30/25 [Rx Confirmed 06/13/25] aspirin 81 mg tablet,delayed release (Adult Aspirin Regimen) 81 mg PO QDAY #30 tabs 04/25/25 [Rx Confirmed 06/13/25] vitamin-ferrous fumarate 28 mg iron-folic acid 800 mcg tablet ( Vitamins with Minerals) 1 tab PO QDAY #60 tabs 04/25/25 [Rx Confirmed 06/13/25] blood sugar diagnostic (Blood Glucose Test strips) #50 ea 05/23/25 [Rx Confirmed 06/13/25] blood-glucose meter #1 ea 05/23/25 [Rx Confirmed 06/13/25] lancets #100 ea 05/23/25 [Rx Confirmed 06/13/25] metformin 500 mg tablet 500 mg PO QHS #60 tabs 06/13/25 [Rx] Immunizations Immunizations Flu Vaccine in the Last 12 Months: No Flu Vaccine Exclusion Criteria: Refused by Patient Care OB Visit Log OB Flowsheet Initial Weight: Not Recorded Date -?-?-?-?-?-?-?-?-?-?-?-?- EGA Weight BP Alb Glu CTX Pres Fundal ht FHR Mov Dilation Station Effacement Hx Notes Visit Note 01/30/25 -?-?-?-?-?-?-?-?-?-?-?-?- 11w 5d 102.115 kg 121/79 absent unknown 11 156 absent 24-year-old 1 para 0 for OBI. Last period November 2024. EDC August 16, 2024. Patient has sure dates. She had an ultrasound at [facility] ER on December 25, 2024. Patient was 6 weeks and 5 and this confirmed dates August 16, 2024. There hCGs were 40,000. Denies bleeding at this time increased nausea and vomiting. Phenergan is not helping. And denies bleeding and denies leaking and no cramping. Schedule materna l- medicine ultrasound. OB panel NIPT and carrier screen today. A1c today. Discussed diet and weight gain. Discussed SAB precautions. Comfort measures for nausea and vomiting continue with the Phenergan as needed and I will add Zofran 4 mg every 8 hours. Increase fluids. Return in 4 weeks OB check 02/27/25 -?-?-?-?-?-?-?-?-?--?-?-?- 15w 5d 103.873 kg 115/76 absent unknown 15 145 absent No OB complaints. Denies leaking, denies bleeding, denies contractions. aFP today. Discussed weight gain. Discussed SAB precautions. Increase fluids. Keep MFM anatomy scan for March 30 return in 4 weeks OB check 03/27/25 -?-?-?-?-?-?-?-?-?-?-?-?- 19w 5d 106.821 kg 135/79 absent unknown 19 145 absent No OB complaints. Genetics appointment was completed. Patient is follow-up for MFM. Denies leaking, bleeding, contractions. Light movement noted Follow-up sono with MFM scheduled for April 02, 2025. Discussed labor precautions. Increase fluids. Return in 4 weeks OB check 04/25/25 -?-?-?-?-?-?-?-?-?-?-?-?- 23w 6d 111.244 kg 112/74 absent unknown 23 140 active Doing well. No OB complaints. Reports good movement. Denies leaking, bleeding or cramps. Nausea and vomiting improved Fol low-up MFM appointment May 17. Discussed labor precautions. Ordered third trimester labs to be done at OB. Return in 4 weeks OB check 05/23/25 -?-?-?-?-?-?-?-?-?-?-?-?- 27w 6d 114.475 kg 114/78 absent unknown 28 140 active Doing well. Reports good movement. Denies labor precautions. Fetus is active. Patient has forms with her that need to be filled out approving 12 weeks off after delivery Follow-up [facility] . Ordered lancets, glucometer, test trips. I discussed and went over GDM diet and testing. Walk for 40 minutes a day and 10 minutes after each meal. Discussed labor precautions. And advised patient to increase her low-dose baby aspirin to 2 tablets a day and return in 3 weeks OB. disability x 12 week 06/13/25 -?-?-?-?-?-?-?-?-?-?-?-?- 30w 6d 113.852 kg 116/75 absent unknown 30 154 active Denies OB complaints. Denies contractions, leaking, bleeding. Reports good compliance with diet. Patient is compliant with monitoring her blood sugars. She notes that when she eats too much her sugars are higher. And she also notes that her blood sugars are highest fasting. Follow-up [facility] July 03. No other OB complaints reports good movement Keep appoin tment with maternal- medicine July 03. In regards to patient's disability she plans to start her disability August 09, 2025. And she plans to be off 12 weeks so her return date will be November 02, 2025. Mom discussed labor precautions. Kick count twice a day. Consulted about her blood sugars and she will start metformin 500 p.o. at at bedtime. She will continue to monitor sugars and then we will reevaluate. Walk 40 minutes a day. We reviewed GDM diet. And I ordered to start weekly NST BPP. Return in 2 weeks OB check. Tdap today GONZALO Calculator Estimated Delivery Date Method Current WG Current Estimate 08/16/25 LMP (Certain) 30w 6d Other Estimates 08/17/25 Ultrasound #1 30w 5d 08/16/25 Ultrasound #2 30w 6d 08/17/25 Manual 30w 5d final gonzalo: 08/17, efw: 86% Notes Visit Date: 05/23/25 Last Updated by: Lyn White CNM 1 hr gtt: 223. RPR-, A1c: 5.8, sono 05/16/25: IUP 26w6, EFW>99% Visit Date: 04/25/25 Last Updated by: Lyn White CNM 04/25: marginal cord insert, efw: 86% Visit Date: 03/27/25 Last Updated by: Lyn White CNM 03/26: AFP+/genetic and mfm scheduled. Update AFP info and NIPT info, patient and partner were given slaiva kits for carrier screen, amno declined Visit Date: 02/27/25 Last Updated by: Lyn White CNM OB PANEL: o+,ABS-, RPR;;NR, RUB IMM, HBSAG-, HIV-, HC-, gc/ct-, a1: 5.7, nipt-/GIRL, CARRIER SCREEN- Visit Date: 01/30/25 Last Updated by: Lyn White CNM 24 yo . lmp 11/09/24. EDC: 08/16/24. 1st sono: 12/25/24. IUP:6w3. EDC: 08/16/25. Office Procedures OBC Clinic LOC & Office Proc's Nursing/Assessment Patient Status: Established Patient OB Clinic Nursing Assessment: Medication Reconciliation, Update PMH in EMR and Vital Signs OB Clinic Coordination of Care: Complex Care and Chronic Disease 1-5, Consent,records obtained, informed consent, Education Simp Pt/Fam, 1 Ins Authorization, Lab and Imaging orders, Results/Orders obtained and Staff clarify orders Special Needs: Heart tones Established Patient Charge Established Patient Point Assignment: 150 Established Patient Point Charge: EP Level 4 (120-155) Injection/Vaccine Admin Admin 1st Vaccine: Yes Immunizations diphth,pertus(acell),tetanus 2.5 Lf unit-8 mcg-5 Lf/0.5mL IM syringe Performing Provider: Lyn White CNM Performing Location: [facility] Clinic Administered by: Erlinda Garza MA on 06/13/25 10:15 Dose Route Admin Location Dispensed Lot Number Expiration Date Pack age [facility] NDC [employer] Cartridge [employer]er 0.5 mL IM Left Deltoid 0.5 mL [id number] 09/29/27 [id number] [employer] VIS Given Date VIS Provided VIS Publication Date 06/13/25 Single Vaccine 24 Eligibility Eligibility Date Funding Source [facility] Assessment & Plan Diagnosis / Problem List (1) Diet controlled gestational diabetes mellitus (GDM) in second trimester: Status: Acute (2) Obesity affecting in second trimester: Status: Acute Qualifiers: Obesity type affecting : severe obesity due to excess calories Qualified Code(s): O99.212 - Obesity complicating , second trimester; E66.01 - Morbid (severe) obesity due to excess calories (3) Encounter for supervision of high risk in third trimester, antepartum: Status: Acute Plan Weekly NST BPP. Reviewed gestational diet. Continue to walk 40 minutes a day. Increase fluids. Continue to monitor sugars. Consult about elevated fastings. Metformin 500 nightly. Keep appointment with maternal- medicine July 03. Discussed labor precautions. Schedule weekly NST BPP to start at 32 weeks on June 21. Additional Plan Follow Up: 2 Weeks (obc)
== END 2025-06-13 09:08 | disposition home or self-care (01) ==
LOC: HODSOBC 08:25
PROVIDERS: Supervising Provider Advanced Practice Midwife; Visit Provider Advanced Practice Midwife
DX: O09.893 Supervision of other high risk pregnancies, third trimester (principal); O24.415 Gestational diabetes mellitus in pregnancy, controlled by oral hypoglycemic drugs; O99.213 Obesity complicating pregnancy, third trimester; Z3A.30 30 weeks gestation of pregnancy; Z23 Encounter for immunization
CPT/HCPCS: 90471; 90715; 99214; G0463

== ENCOUNTER 2025-07-02 10:01 | Outpatient (AMB) | payer OTHER, SELFPAY ==
[2025-07-02 10:11] VITALS: BP 123/79; PULSE 97; RESP 18; TEMP 36.2; O2SAT 98; BMI 42.0
--- NOTE | 2025-07-02 10:11 | OBCLNT_ITS ---
Vital Signs 07/02/25 10:11 Height 1.65 m Height Method Stated Weight 114.475 kg Weight Measurement Method Standing Scale BMI 42.0 BP 123/79 Blood Pressure Source Automatic Cuff Blood Pressure Location Left Upper Arm Position Sitting Respiration 18 Pulse 97 Pulse Source Monitor Temp 97.2 F Temp Source Oral Pulse Oximetry (%) 98 Oxygen Delivery Method Room Air Allergies/Home Meds Allergies & Medications Allergies No Known Allergies Allergy (Verified 07/02/25 10:12) Medication Reconciliation dicyclomine 20 mg tablet 20 mg PO TID PRN abdominal discomfort #14 tabs 09/23/22 [Rx Confirmed 07/02/25] ondansetron 4 mg disintegrating tablet 4 mg PO Q8H PRN nausea and vomiting #14 tabs 09/23/22 [Rx Confirmed 07/02/25] ondansetron 4 mg disintegrating tablet 4 mg PO Q6H PRN nausea and vomiting #14 tabs 12/24/24 [Rx Confirmed 07/02/25] ondansetron 4 mg disintegrating tablet 4 mg PO Q6H PRN nausea and vomiting #30 tabs 01/30/25 [Rx Confirmed 07/02/25] aspirin 81 mg tablet,delayed release (Adult Aspirin Regimen) 81 mg PO QDAY #30 tabs 04/25/25 [Rx Confirmed 07/02/25] vitamin-ferrous fumarate 28 mg iron-folic acid 800 mcg tablet ( Vitamins with Minerals) 1 tab PO QDAY #60 tabs 04/25/25 [Rx Confirmed 07/02/25] blood sugar diagnostic (Blood Glucose Test strips) #50 ea 05/23/25 [Rx Confirmed 07/02/25] blood-glucose meter #1 ea 05/23/25 [Rx Confirmed 07/02/25] metformin 500 mg tablet 500 mg PO QHS #60 tabs 06/13/25 [Rx Confirmed 07/02/25] lancets #100 ea 07/02/25 [Rx] metformin 1,000 mg tablet 1,000 mg PO QDAY #60 tabs 07/02/25 [Rx] Immunizations Immunizations Flu Vaccine in the Last 12 Months: No Flu Vaccine Exclusion Criteria: Already Received Care OB Visit Log OB Flowsheet Initial Weight: Not Recorded Date -?-?-?-?-?-?-?-?-?-?-?-?- EGA Weight BP Alb Glu CTX Pres Fundal ht FHR Mov Dilation Station Effacement Hx Notes Visit Note 01/30/25 -?-?-?-?-?-?-?-?-?-?-?-?- 11w 5d 102.115 kg 121/79 absent unknown 11 156 absent 24-year-old 1 para 0 for OBI. Last period November 2024. EDC August 16, 2024. Patient has sure dates. She had an ultrasound at [facility] ER on December 25, 2024. Patient was 6 weeks and 5 and this confirmed dates August 16, 2024. There hCGs were 40,000. Denies bleeding at this time increased nausea and vomiting. Phenergan is not helping. And denies bleeding and denies leaking and no cramping. Schedule materna l- medicine ultrasound. OB panel NIPT and carrier screen today. A1c today. Discussed diet and weight gain. Discussed SAB precautions. Comfort measures for nausea and vomiting continue with the Phenergan as needed and I will add Zofran 4 mg every 8 hours. Increase fluids. Return in 4 weeks OB check 02/27/25 -?-?-?-?-?-?-?-?-?-?-?-?- 15w 5d 103.873 kg 115/76 absent unknown 15 145 absent No OB complaints. Denies leaking, denies bleeding, denies contractions. aFP today. Discussed weight gain. Discussed SAB precautions. Increase fluids. Keep MFM anatomy scan for March 30 return in 4 weeks OB check 03/27/25 -?-?-?-?-?-?-?-?-?-?-?-?- 19w 5d 106.821 kg 135/79 absent unknown 19 145 absent No OB complaints. Genetics appointment was completed. Patient is follow-up for MFM. Denies leaking, bleeding, contractions. Light movement noted Follow-up sono with MFM scheduled for April 02, 2025. Discussed labor precautions. Increase fluids. Return in 4 weeks OB check 04/25/25 -?-?-?-?-?-?-?-?-?-?-?-?- 23w 6d 111.244 kg 112/74 absent unknown 23 140 active Doing well. No OB complaints. Reports good movement. Denies leaking, bleeding or cramps. Nausea and vomiting improved Fol low-up MFM appointment May 17. Discussed labor precautions. Ordered third trimester labs to be done at M OB. Return in 4 weeks OB check 05/23/25 -?-?-?-?-?-?-?-?-?-?-?-?- 27w 6d 114.475 kg 114/78 absent unknown 28 140 active Doing well. Reports good movement. Denies labor precautions. Fetus is active. Patient has forms with her that need to be filled out approving 12 weeks off a fter delivery Follow-up MFM . Ordered lancets, glucometer, test trips. I discussed and went over GDM diet and testing. Walk for 40 minutes a day and 10 minutes after each meal. Discussed labor precautions. And advised patient to increase her low-dose baby aspirin to 2 tablets a day and return in 3 weeks OB. disability x 12 week 06/13/25 -?-?-?-?-?-?-?-?-?-?-?-?- 30w 6d 113.852 kg 116/75 absent unknown 30 154 active Denies OB complaints. Denies contractions, leaking, bleeding. Reports good compliance with diet. Patient is compliant with monitoring her blood sugars. She notes that when she eats too much her sugars are higher. And she also notes that her blood sugars are highest fasting. Follow-up MFM July 03. No other OB complaints reports good movement Keep appoin tment with maternal- medicine July 03. In regards to patient's disability she plans to start her disability August 09, 2025. And she plans to be off 12 weeks so her return date will be November 02, 2025. Mom discussed labor precautions. Kick count twice a day. Consulted about her blood sugars and she will start metformin 500 p.o. at at bedtime. She will continue to monitor sugars and then we will reevaluate. Walk 40 minutes a day. We reviewed GDM diet. And I ordered to start weekly NST BPP. Return in 2 weeks OB check. Tdap today 07/02/25 -?-?-?-?-?-?-?-?-?-?-?-?- 33w 4d 114.475 kg 123/79 absent cephalic 33 15 6 active Reports good movement. Denies leaking or bleeding. No contractions. Patient is still working. Compliant with NST and BPP every 2 week. Patient continues to monitor sugars 4 times a day. Fasting blood sugar still over 100. And patient has values after meals consistently 3 or 4 times a week. Reviewed GDM diet with patient. Reviewed parameters for glucose monitoring. Consult with OB regarding sugar logs. Will increase the metformin p.m. dose to thousand for 2 weeks. Patient to continue 500 in the a.m. dose. Walk 40 minutes a day and 10 minutes after each meal. And continue weekly NST BPP. The patient will follow-up with OB in 2 weeks to evaluate effectiveness of increasing metformin GONZALO Calculator Estimated Delivery Date Method Current WG Current Estimate 08/16/25 LMP (Certain) 33w 4d Other Estimates 08/17/25 Ultrasound #1 33w 3d 08/16/25 Ultrasound #2 33w 4d 08/17/25 Manual 33w 3d final gonzalo: 08/17, efw: 86% Notes Visit Date: 05/23/25 Last Updated by: Lyn White CNM 1 hr gtt: 223. RPR-, A1c: 5.8, sono 05/16/25: IUP 26w6, EFW>99% Visit Date: 04/25/25 Last Updated by: Lyn White CNM 04/25: marginal cord insert, efw: 86% Visit Date: 03/27/25 Last Updated by: Lyn White CNM 03/26: AFP+/genetic and mfm scheduled. Update AFP info and NIPT info, patient and partner were given slaiva kits for carrier screen, amno declined Visit Date: 02/27/25 Last Updated by: Lyn White CNM OB PANEL: o+,ABS-, RPR;;NR, RUB IMM, HBSAG-, HIV-, HC-, gc/ct-, a1: 5.7, nipt-/GIRL, CARRIER SCREEN- Visit Date: 01/30/25 Last Updated by: Lyn hWite CNM 24 yo . lmp 11/09/24. EDC: 08/16/24. 1st sono: 12/25/24. IUP:6w3. EDC: 08/16/25. Office Procedures OBC Clinic LOC & Office Proc's Nursing/Assessment Patient Status: Established Patient OB Clinic Nursing Assessment: Medication Reconciliation, Update PMH in EMR and Vital Signs OB Clinic Coordination of Care: Complex Care and Chronic Disease 1-5, Consent,records obtained, informed consent, Education Simp Pt/Fam, Lab and Imaging orders and Staff clarify orders Special Needs: Heart tones Established Patient Charge Established Patient Point Assignment: 130 Established Patient Point Charge: EP Level 4 (120-155) Assessment & Plan Diagnosis / Problem List (1) Encounter for supervision of high risk in third trimester, antepartum: Status: Acute (2) Diet controlled gestational diabetes mellitus (GDM) in second trimester: Status: Acute Plan Increase p.m. metformin to thousand daily. And continue the 500 mg p.o. in the morning shift. Continue to monitor blood sugars 4 times a day. Continue weekly NST BPP. Continue to walk 40 minutes a day and after meals. Patient has a MFM ultrasound in the a.m. Discussed labor precautions and kick count twice a day return in 2 weeks with OB to evaluate effectiveness of increased metformin. Additional Plan Follow Up: 2 Weeks (obc)
== END 2025-07-02 10:20 | disposition home or self-care (01) ==
PROVIDERS: Supervising Provider Advanced Practice Midwife; Visit Provider Advanced Practice Midwife
DX: O09.893 Supervision of other high risk pregnancies, third trimester (principal); O24.415 Gestational diabetes mellitus in pregnancy, controlled by oral hypoglycemic drugs; Z3A.33 33 weeks gestation of pregnancy
CPT/HCPCS: 99214; G0463